=== PATIENT | male | born 1955 | race Two or more races ===

== ENCOUNTER 2019-02-27 12:50 | Emergency (ER) | payer SELFPAY ==
[~2019-02-27] VITALS: Ht 177.8 cm; Wt 99.8 kg
[2019-02-27 13:05] VITALS: BP 166/90
--- NOTE | 2019-02-27 13:05 | NUR ---
ED Nurse Note: pt was brought by ambulance from work due to weakness and dizziness for last 1 hr. pt noted to be vomiting upon arrival. pt stated he feels dizzy. denies any history. denies any medication. seen by ermd. with orders made and carried out. pt came in with iv gauge 20 on the right hand. pt is cold amnd moist. pt hooked to monitor with vital signs with in normal limit. pt appears to be sleep. pt stated that he has difficulty staying awake. denies taking any drugs. will continue to monitor.
[2019-02-27] MEDS: Meclizine 25mg tab ORAL ONE ×3 (13:23→13:42)
--- NOTE | 2019-02-27 13:35 | NUR ---
ED Nurse Note: emission technician oin bedside.
--- NOTE | 2019-02-27 13:40 | NUR ---
ED Nurse Note: with new order from er, po meds given and pt vomited the pills. ermd made aware. meds wasted with charge nurse. po meds given again and pt able to tolerate it on the second time. iv zofran was also given. pt went to ct with tech. will continue to monitor
[2019-02-27 13:50] LABS: BASOPHILS % (AUTO) 0.9 % (0.0-2.0); EOSINOPHILS % (AUTO) 0.8 % (0.0-3.0); HEMATOCRIT 46.1 % (42.0-52.0); HEMOGLOBIN 14.7 G/DL (14.2-18.0); LYMPHOCYTES % (AUTO) 27.2 % (20.0-45.0); MEAN CORPUSCULAR VOLUME 90 FL (80-99); MONOCYTES % (AUTO) 5.8 % (1.0-10.0); NEUTROPHILS % (AUTO) 65.4 % (45.0-75.0); PLATELET COUNT 209 K/UL (150-450); RED BLOOD COUNT 5.12 M/UL (4.70-6.10); RED CELL DISTRIBUTION WIDTH 13.6 % (11.6-14.8); WHITE BLOOD COUNT 10.1 K/UL (4.8-10.8)
[2019-02-27 13:57] LABS: ANION GAP 10 mmol/L (5-15); BLOOD UREA NITROGEN 11 mg/dL (7-18); CALCIUM 8.4 MG/DL (8.5-10.1); CARBON DIOXIDE 26 MMOL/L (21-32); CHLORIDE 104 MMOL/L (98-107); CREATININE 0.7 MG/DL (0.55-1.30); POTASSIUM 3.5 MMOL/L (3.5-5.1); SODIUM 140 MMOL/L (136-145)
[2019-02-27 14:01] LABS: ALANINE AMINOTRANSFERASE 19 U/L (12-78); ALBUMIN 3.5 G/DL (3.4-5.0); ALBUMIN/GLOBULIN RATIO 0.9 (1.0-2.7); ALKALINE PHOSPHATASE 76 U/L (46-116); ASPARTATE AMINO TRANSFERASE 16 U/L (15-37); BILIRUBIN,TOTAL 0.6 MG/DL (0.2-1.0)
--- NOTE | 2019-02-27 14:04 | Emergency Room Report ---
History of Present Illness General Chief Complaint: Dizziness Source: Patient, EMS Present Illness HPI Patient presents emergency department today complaining of acute onset of intense vertigo. Patient states that he was at work and felt acute onset of dizziness followed by severe nausea and sensation of vertigo with episodes of spitting up. Paramedics were contacted was brought here further evaluation. Symptoms are worsened movement of his head. He denies any chest pain shortness of breath. No other complaints are noted. Symptoms noted to be severe. Patient's never had episodes of this before. Symptoms seem to be worse by position. No other modifying factors. No other associated signs and symptoms. No other complaints were noted. Allergies: Coded Allergies: No Known Allergies (Unverified , 02/27/19) Patient History Past Medical History: none Past Surgical History: none Pertinent Family History: none Social History: Denies: smoking, alcohol use, drug use Reviewed Nursing Documentation: PMH: Agreed; PSxH: Agreed Nursing Documentation-PMH Past Medical History: No History, Except For Review of Systems All Other Systems: negative except mentioned in HPI Physical Exam Vital Signs Date Time Temp Pulse Resp B/P (MAP) Pulse Ox O2 Delivery O2 Flow Rate FiO2 02/27/19 12:35 98.1 70 18 166/90 100 Room Air Sp02 EP Interpretation: reviewed, normal General Appearance: alert, moderate distress Head: normocephalic, atraumatic Eyes: bilateral eye normal inspection, bilateral eye other - Questionable nystagmus ENT: normal ENT inspection, hearing grossly normal, normal voice Neck: normal inspection, full range of motion, supple, no bony tend Respiratory: normal inspection, lungs clear, normal breath sounds, no respiratory distress, no retraction, no wheezing Cardiovascular #1: regular rate, rhythm, no edema Gastrointestinal: normal inspection, normal bowel sounds, non tender, soft, no guarding, no hernia Genitourinary: no CVA tenderness Musculoskeletal: normal inspection, back normal, normal range of motion Neurologic: normal inspection, alert, responsive, speech normal Psychiatric: normal inspection, judgement/insight normal, anxious Skin: normal inspection, normal color, no rash Medical Decision Making Diagnostic Impression: Primary Impression: Dizziness ER Course Patient presents emergency department today complaining of dizziness. Differential considerations include acute intracranial injury, electrolyte abnormality, infectious process, vertigo just name a few.Given the severity of the patient's presentation I felt this is a highly complex patient. This patient required extensive workup. Patient's laboratory workup appears be negative. Because of patient's presentation I felt the patient required extensive workup. Patient was given meclizine and Valium and fluids. Head CT was obtained. Patient however remains persistent dizziness. Therefore case was signed out to Dr. Harrington for final disposition. Labs Test 02/27/19 13:17 White Blood Count 10.1 K/UL (4.8-10.8) Red Blood Count 5.12 M/UL (4.70-6.10) Hemoglobin 14.7 G/DL (14.2-18.0) Hematocrit 46.1 % (42.0-52.0) Mean Corpuscular Volume 90 FL (80-99) Mean Corpuscular Hemoglobin 28.7 PG (27.0-31.0) Mean Corpuscular Hemoglobin Concent 31.9 G/DL (32.0-36.0) Red Cell Distribution Width 13.6 % (11.6-14.8) Platelet Count 209 K/UL (150-450) Mean Platelet Volume 7.1 FL (6.5-10.1) Neutrophils (%) (Auto) 65.4 % (45.0-75.0) Lymphocytes (%) (Auto) 27.2 % (20.0-45.0) Monocytes (%) (Auto) 5.8 % (1.0-10.0) Eosinophils (%) (Auto) 0.8 % (0.0-3.0) Basophils (%) (Auto) 0.9 % (0.0-2.0) Sodium Level 140 MMOL/L (136-145) Potassium Level 3.5 MMOL/L (3.5-5.1) Chloride Level 104 MMOL/L (98-107) Carbon Dioxide Level 26 MMOL/L (21-32) Anion Gap 10 mmol/L (5-15) Blood Urea Nitrogen 11 mg/dL (7-18) Creatinine 0.7 MG/DL (0.55-1.30) Estimat Glomerular Filtration Rate > 60 mL/min (>60) Glucose Level 166 MG/DL (74-106) Calcium Level 8.4 MG/DL (8.5-10.1) Total Bilirubin 0.6 MG/DL (0.2-1.0) Aspartate Amino Transf (AST/SGOT) 16 U/L (15-37) Alanine Aminotransferase (ALT/SGPT) 19 U/L (12-78) Alkaline Phosphatase 76 U/L (46-116) Total Protein 7.4 G/DL (6.4-8.2) Albumin 3.5 G/DL (3.4-5.0) Globulin 3.9 g/dL Albumin/Globulin Ratio 0.9 (1.0-2.7) EKG Diagnostic Results Rate: normal Rhythm: NSR ST Segments: no acute changes Rhythm Strip Diag. Results EP Interpretation: yes Rate: 60s Rhythm: NSR, no PVC's, no ectopy Last Vital Signs Date Time Temp Pulse Resp B/P (MAP) Pulse Ox O2 Delivery O2 Flow Rate FiO2 02/27/19 13:05 98.1 70 18 166/90 100 Room Air Scripts No Active Prescriptions or Reported Meds Josiah Bland MD Feb 27, 2019 14:04
[2019-02-27] MEDS ORDERED: Metoclopramide 10mg/2ml Inj IVP ONE (14:30)
[2019-02-27 14:35] VITALS: BP 128/61
--- NOTE | 2019-02-27 14:35 | Diagnostic Imaging Report ---
Indication: Vertigo, somnolence, weakness and dizziness, vomiting Technique: Continuous helical CT scanning of the head was performed without intravenous contrast material. Axial and coronal 5 mm sections were generated. Radiation dose was minimized using automated exposure control Dose: Total Dose Length Product - DLP 1418.[address] Dose Index - CTDIvol(s) 70.38 mGy. Comparison: none Findings: The ventricular system is normal in size and configuration. There is no shift of midline structures. No abnormal extra-axial fluid collections are noted. There is no evidence of intracerebral bleeding. No other abnormal high or low density areas are noted within the brain. Crandall-white differentiation is normal. The calvarium is intact. Visualized orbits and sinuses are unremarkable. Impression: Normal CT scan of the head without contrast material. The CT scanner at [facility] is accredited by the [employer] and the scans are performed using protocols designed to limit radiation exposure to as low as reasonably achievable to attain images of sufficient resolution adequate for diagnostic evaluation.
--- NOTE | 2019-02-27 14:55 | Diagnostic Imaging Report ---
Indication: Cough, shortness of breath Technique: One view of the chest Comparison: none Findings: Body habitus limits evaluation. The heart is borderline enlarged. There is questionable mild interstitial congestion. No definite effusions. No definite focal airspace consolidation. Impression: Cardiomegaly Possible mild interstitial congestive change
--- NOTE | 2019-02-27 15:20 | NUR ---
ED Nurse Note: ermd on bedside talking about the plan of care with the pt. pt able to ambulate for more than 20 feet without distress and with steady gait. no nausea or vomiting noted. pt stated he feel a lot better now and he is ready to go home.
[2019-02-27 15:30] VITALS: BP 123/78
[2019-02-27] MEDS ORDERED: REGLAN10 MG ORAL (15:31)
[2019-02-27] MEDS ORDERED: MECLIZINE HCL25 MG ORAL (15:31)
--- NOTE | 2019-02-27 15:43 | Emergency Room Report ---
Physical Exam Vital Signs Date Time Temp Pulse Resp B/P (MAP) Pulse Ox O2 Delivery O2 Flow Rate FiO2 02/27/19 12:35 98.1 70 18 166/90 100 Room Air Medical Decision Making Diagnostic Impression: Primary Impression: Vertigo ER Course Hospital Course 63 yo M presents to ED c/o dizziness Clinical course Patient initially seen and evaluated by Dr. Bland; please see his note for full history and physical Patient was initially still feeling unsteady and nauseous after medications. Discussion for possible admission. Patient given IV Reglan CT brain negative Upon reassessment patient states his symptoms have improved. Is walking with steady gait in ED. I do not believe patient requires admission at this time. Patient agrees. Stable and discharged to home. We'll provide prescriptions for Reglan and meclizine. I'll also provide instructions for Dhaval maneuver. Does not have a PMD. We'll provide referrals I. I feel this is a highly complex case requiring extensive working including EKG/Rhythm strip, Xray/CT/US, Blood/urine lab work, repeat exams while in ED, and administration of strong opiates/narcotics for pain control, admission to hospital or close patient follow up. Diagnosis - vertigo stable and discharged to home with prescription for meclizine, reglan. Followup with PMD. Return to ED if symptoms recur or worsen Labs Test 02/27/19 13:17 White Blood Count 10.1 K/UL (4.8-10.8) Red Blood Count 5.12 M/UL (4.70-6.10) Hemoglobin 14.7 G/DL (14.2-18.0) Hematocrit 46.1 % (42.0-52.0) Mean Corpuscular Volume 90 FL (80-99) Mean Corpuscular Hemoglobin 28.7 PG (27.0-31.0) Mean Corpuscular Hemoglobin Concent 31.9 G/DL (32.0-36.0) Red Cell Distribution Width 13.6 % (11.6-14.8) Platelet Count 209 K/UL (150-450) Mean Platelet Volume 7.1 FL (6.5-10.1) Neutrophils (%) (Auto) 65.4 % (45.0-75.0) Lymphocytes (%) (Auto) 27.2 % (20.0-45.0) Monocytes (%) (Auto) 5.8 % (1.0-10.0) Eosinophils (%) (Auto) 0.8 % (0.0-3.0) Basophils (%) (Auto) 0.9 % (0.0-2.0) Sodium Level 140 MMOL/L (136-145) Potassium Level 3.5 MMOL/L (3.5-5.1) Chloride Level 104 MMOL/L (98-107) Carbon Dioxide Level 26 MMOL/L (21-32) Anion Gap 10 mmol/L (5-15) Blood Urea Nitrogen 11 mg/dL (7-18) Creatinine 0.7 MG/DL (0.55-1.30) Estimat Glomerular Filtration Rate > 60 mL/min (>60) Glucose Level 166 MG/DL (74-106) Calcium Level 8.4 MG/DL (8.5-10.1) Total Bilirubin 0.6 MG/DL (0.2-1.0) Aspartate Amino Transf (AST/SGOT) 16 U/L (15-37) Alanine Aminotransferase (ALT/SGPT) 19 U/L (12-78) Alkaline Phosphatase 76 U/L (46-116) Total Protein 7.4 G/DL (6.4-8.2) Albumin 3.5 G/DL (3.4-5.0) Globulin 3.9 g/dL Albumin/Globulin Ratio 0.9 (1.0-2.7) CT/MRI/US Diagnostic Results CT/MRI/US Diagnostic Results : Imaging Test Ordered: CT head Impression no acute process Last Vital Signs Date Time Temp Pulse Resp B/P (MAP) Pulse Ox O2 Delivery O2 Flow Rate FiO2 02/27/19 15:30 83 16 123/78 97 Room Air 02/27/19 13:05 98.1 Status: improved Disposition: HOME, SELF-CARE Condition: Stable Scripts Meclizine Hcl* (MECLIZINE*) 25 Mg Tablet 25 MG ORAL THREE TIMES A DAY for 7 Days, TAB Prov: Julius Harrington MD 02/27/19 Metoclopramide Hcl* (REGLAN*) 10 Mg Tablet 10 MG ORAL THREE TIMES A DAY for 7 Days, TAB Prov: Julius Harrington MD 02/27/19 Referrals: [facility] Departure Forms: Return to Work Return to Work Date: Mar 01, 2019 Work Restrictions: No Heavy Lifting Patient Instructions: Vertigo, Dhaval Maneuver Self-Care Julius Harrington MD Feb 27, 2019 15:42
[2019-02-27 15:48] VITALS: BP 123/78
--- NOTE | 2019-02-27 15:48 | NUR ---
ER DISCHARGE NOTE: Patient is cleared to be discharged per ERMD, pt is aox4, on room air, with stable vital signs. pt was given dc and prescription instructions, pt was able to verbalize understanding, pt id band and iv site removed without complications. pt is able to ambulate with steady gait. pt took all belongings.
--- NOTE | 2019-02-28 18:23 | Cardiology Report ---
APPROVED REPORT EKG Measurement Heart [id number] OR [id number] [id number] Normal sinus rhythm Normal ECG
== END 2019-02-27 15:48 | disposition home or self-care (01) ==
LOC: EDBD 12:50 → EMR 14:25 → CANBEDREQ 15:42 → EMR 15:48
DX: R42 Dizziness and giddiness (principal); I51.7 Cardiomegaly; R53.1 Weakness; R11.2 Nausea with vomiting, unspecified
CPT/HCPCS: 36415; 70450; 71045; 80053; 85025; 93005; 96374; 96375; 99284; J2405; J2765; J7040